=== PATIENT | female | born 1960 | race Caucasian/White ===

== ENCOUNTER 2016-10-23 00:26 | Emergency (ER) | payer OTHER ==
[2016-10-23 00:34] VITALS: BP 141/79; PULSE 74; TEMP 98.2; BMI 32.0
[2016-10-23] MEDS ORDERED: HYDROCORTISONE 1% TOPICAL CREAM 30 GM TUBE TP STA (00:38)
--- NOTE | 2016-10-23 01:14 | PDOC ---
History of Present Illness - General Chief Complaint: Bite Stated Complaint: bite on left lower leg Time Seen by Provider: 10/23/16 00:37 - History of Present Illness Initial Comments: 10/23/16 01:42 presents with blistering on left lower leg. just noticed it c/o itchy no fever/ chills no new meds no viral symptoms no hx of trauma pmh: psychiatric illness fhx: noncontrib ros: reviewed and otherwise negative o/e nad skin--vesicles and blisters on erythematous base, l lower leg. no other rash noted oral pharynx--clear cta rrr nl speech, nl gait a/p contact dermatitis versus allergic reaction to bite topical corticosteroids Past History - Past Medical History Allergies/Adverse Reactions: Allergies Allergy/AdvReac Type Severity Reaction Status Date / Time No Known Allergies Allergy Verified 10/23/16 00:28 Home Medications: Ambulatory Orders NK [No Known Home Medication] 10/23/16 Other medical history: DENIES - Immunization History Immunization Up to Date: Yes - Psycho/Social/Smoking Cessation Hx Anxiety: No Suicidal Ideation: No Smoking Status: No Smoking History: Never smoked Have you smoked in the past 12 months: No Number of Cigarettes Smoked Daily: 0 Information on smoking cessation initiated: No Hx Alcohol Use: No Drug/Substance Use Hx: No Substance Use Type: None *Physical Exam - Vital Signs Last Vital Signs Temp Pulse Resp BP Pulse Ox 98.2 F 74 18 141/79 97 10/23/16 00:30 10/23/16 00:30 10/23/16 00:30 10/23/16 00:30 10/23/16 00:30 *DC/Admit/Observation/Transfer Diagnosis at time of Disposition: Contact dermatitis Qualifiers: Contact dermatitis type: unspecified Contact dermatitis trigger: unspecified trigger Qualified Code(s): L25.9 - Unspecified contact dermatitis, unspecified cause - Discharge Dispostion Disposition: HOME Condition at time of disposition: Stable - Referrals Referrals: Luisa Kirkland [Primary Care Provider] - - Patient Instructions Printed Discharge Instructions: How to Care for an Insect Bite or Sting
== END 2016-10-23 00:45 | disposition home or self-care (01) ==
LOC: FER 00:26
DX: L25.9 Unspecified contact dermatitis, unspecified cause (principal)
CPT/HCPCS: 99281-25

== ENCOUNTER 2016-10-26 19:02 | Emergency (ER) | payer OTHER ==
--- NOTE | 2016-10-26 19:16 | PDOC ---
History of Present Illness - General History Source: Patient, Old Records Exam Limitations: No Limitations - History of Present Illness Initial Comments: 10/26/16 19:36 The patient is a 56 year old female with a past medical history of depression and migraines, who presents to the emergency department with right foot pain for 3 weeks. The patient states that she had bilateral heel spur surgery in May and June of 2015 at [facility] and that her pain is secondary to her post operative treatment. She reports difficulty bearing weight on her right foot secondary to the pain. She did not try to treat the pain at home. She denies any fall or trauma that may have resulted in the pain. PCP: Dr. Luisa Kirkland [phone] <Micha Gallo - Last Filed: 10/26/16 20:53> <Mendy Boateng - Last Filed: 10/27/16 01:44> - General Chief Complaint: Pain Stated Complaint: PAIN Time Seen by Provider: 10/26/16 19:13 Past History <Micha Gallo - Last Filed: 10/26/16 20:53> - Immunization History Immunization Up to Date: Yes - Psycho/Social/Smoking Cessation Hx Anxiety: No Suicidal Ideation: No Smoking Status: No Smoking History: Never smoked Have you smoked in the past 12 months: No Number of Cigarettes Smoked Daily: 0 Information on smoking cessation initiated: No Hx Alcohol Use: No Drug/Substance Use Hx: No Substance Use Type: None <Mendy Boateng - Last Filed: 10/27/16 01:44> - Past Medical History Allergies/Adverse Reactions: Allergies Allergy/AdvReac Type Severity Reaction Status Date / Time ibuprofen [From Motrin] Allergy Intermediate Itching Verified 10/26/16 19:16 Home Medications: Ambulatory Orders Mirtazapine 15 mg PO DAILY 10/26/16 Paroxetine HCl [Paxil] 30 mg PO DAILY 10/26/16 Tramadol HCl 50 mg PO BID PRN #10 tablet MDD 2 tabs 10/26/16 Review of Systems - Review of Systems Able to Perform ROS?: Yes Comments:: 10/26/16 19:36 CONSTITUTIONAL: Absent: fever, no chills, no fatigue EYES: Absent: visual changes ENT: Absent: ear pain, no sore throat CARDIOVASCULAR: Absent: chest pain, no palpitations RESPIRATORY: Absent: cough, no SOB GI: Absent: abdominal pain, no nausea, no vomiting, no constipation, no diarrhea GENITOURINARY: Absent: dysuria, no frequency, no hematuria MUSCULOSKELETAL: Present: Right foot pain Absent: back pain, neck pain SKIN: Absent: rash NEURO: Absent: headache <CleoMicha - Last Filed: 10/26/16 20:53> *Physical Exam - Vital Signs Last Vital Signs Temp Pulse Resp BP Pulse Ox 98.6 F 71 16 146/78 98 10/26/16 19:03 10/26/16 19:03 10/26/16 19:03 10/26/16 19:03 10/26/16 19:03 - Physical Exam Comments: 10/26/16 19:36 GENERAL: The patient is awake, alert, and fully oriented, in no acute distress. HEAD: Normal with no signs of trauma. EYES: Pupils equal, round and reactive to light, extraocular movements intact, sclera anicteric, conjunctiva clear with no pallor. ENT: Ears normal, nares patent, oropharynx clear without exudates. Moist mucous membranes. NECK: Normal range of motion, supple without lymphadenopathy, JVD, or masses. LUNGS: Breath sounds equal, clear to auscultation bilaterally. No wheeze/ crackles. HEART: Regular rate and rhythm, normal S1 and S2 without murmur or rub. ABDOMEN: Soft/nontender/nondistended. BS wnl. No guarding or rebound. No palpable masses. No hepatosplenomegaly. EXTREMITIES: (+) Normal range of motion, no edema. RLE marked tenderness mid posterior plantar surface with minimal edema no erythema or ecchymosis or deformity no evidence of ulcer or skin break no achilles tendon tenderness or step off. Distal foot was warm and dry with excellent capillary refill. NEUROLOGICAL: Cranial nerves II through XII grossly intact. Normal speech, normal gait. PSYCH: Normal mood, normal affect. SKIN: Warm, Dry, normal turgor, no rashes or lesions noted. <CleoMicha - Last Filed: 10/26/16 20:53> - Vital Signs Last Vital Signs Temp Pulse Resp BP Pulse Ox 98.6 F 71 16 146/78 98 10/26/16 19:03 10/26/16 19:03 10/26/16 19:03 10/26/16 19:03 10/26/16 19:03 <Mendy Boateng - Last Filed: 10/27/16 01:44> ED Treatment Course - RADIOLOGY Radiograph Interpretation: 10/26/16 20:20 EXAM#: TYPE/EXAM: RESULT: [id number] RAD/OSCALCIS/HEEL-RIGHT HISTORY PROVIDED: Heel pain. AP and lateral projections of the right calcaneus reveals no evidence of fracture or acute bony abnormalities. There is a small spur along the plantar surface. IMPRESSION: Small calcaneal spur Reported By: Gustavo Rueda MD 10/26/162008 <Micha Gallo - Last Filed: 10/26/16 20:53> Medical Decision Making - Medical Decision Making Documentation has been prepared under my direction and personally reviewed by me in its entirety. I attest that this documented accurately reflects all work, treatment, procedures and medical decision making performed by me. As noted above, this 56-year-old woman who has had bilateral removal of heel spurs last year, presents with a few week history of recurrent right heel pain. No history of trauma/overuse noted. On exam, she had marked tenderness of the posterior plantar surface over the calcaneal region. Os calcis x-ray performed to evaluate for new trauma or other acute abnormalities. As noted above, small heel spur noted on x-ray but no other abnormality. Results discussed with the patient. Since the patient has apparent ALLERGY to ibuprofen (had facial swelling after ibuprofen ingestion last year), nonsteroidal anti-inflammatory medications will be avoided. Small (#10) prescription for tramadol 50 mg will be prescribed to be used as needed for severe pain. Patient has been cautioned that she may feel drowsy after this medication and to avoid driving or other activities requiring her full attention . 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 <Mendy Boateng - Last Filed: 10/27/16 01:44> *DC/Admit/Observation/Transfer - Attestations Scribe Attestion: 10/26/16 19:36 Documentation prepared by Micha Gallo, acting as medical assistant secretary for Mendy Boateng MD. <Micha Gallo - Last Filed: 10/26/16 20:53> <Mendy Boateng - Last Filed: 10/27/16 01:44> Diagnosis at time of Disposition: Pain of right heel - Discharge Dispostion Disposition: HOME Condition at time of disposition: Stable - Prescriptions Prescriptions: Tramadol HCl 50 mg PO BID PRN #10 tablet MDD 2 tabs PRN Reason: Severe Pain - Referrals Referrals: Luisa Kirkland [Primary Care Provider] - - Patient Instructions Printed Discharge Instructions: Heels That Hurt Additional Instructions: continue tylenol as needed for mild pain tramadol 50mg up to twice a day for more severe pain followup with your printing agent next week as scheduled return to ER if you have more severe pain
[2016-10-26 19:17] VITALS: BP 146/78; PULSE 71; TEMP 98.6; BMI 32.0
== END 2016-10-26 20:33 | disposition home or self-care (01) ==
LOC: FER 19:02
DX: M79.671 Pain in right foot (principal); Z98.890 Other specified postprocedural states; F32.9 Major depressive disorder, single episode, unspecified
CPT/HCPCS: 73650-TC-RT; 99281-25

== ENCOUNTER 2018-01-26 10:35 | Emergency (ER) | payer OTHER ==
[2018-01-26 11:16] VITALS: BP 141/83; PULSE 64; TEMP 98.3; BMI 30.1
--- NOTE | 2018-01-26 11:59 | PDOC ---
History of Present Illness - General Chief Complaint: Sore Throat Stated Complaint: FOREIGN BODY Time Seen by Provider: 01/26/18 11:39 History Source: Patient Exam Limitations: No Limitations (sorethroat X 2 months) Past History - Travel Traveled outside of the country in the last 30 days: No Close contact w/someone who was outside of country & ill: No - Past Medical History Allergies/Adverse Reactions: Allergies Allergy/AdvReac Type Severity Reaction Status Date / Time ibuprofen [From Motrin] Allergy Intermediate Itching Verified 01/26/18 11:12 Home Medications: Ambulatory Orders Mirtazapine 15 mg PO DAILY 10/26/16 Paroxetine HCl [Paxil] 30 mg PO DAILY 10/26/16 Tramadol HCl 50 mg PO BID PRN #10 tablet MDD 2 tabs 10/26/16 Chlorhexidine Gluconate [Peridex -] 15 ml MM ONCE 7 Days #90 ml 01/26/18 Asthma: Yes COPD: No - Immunization History Immunization Up to Date: Yes - Suicide/Smoking/Psychosocial Hx Smoking Status: No Smoking History: Never smoked Have you smoked in the past 12 months: No Number of Cigarettes Smoked Daily: 0 Hx Alcohol Use: No Drug/Substance Use Hx: No Substance Use Type: None Review of Systems - Review of Systems Is the patient limited Thai proficient: No Constitutional: No: Chills, Fever HEENTM: Yes: Throat Pain. No: Double Vision, Ocular Prothesis, Ear Discharge, Nose Pain, Nose Congestion, Nose Bleeding, Hearing Loss, Throat Swelling, Dental Problems, Difficulty Swallowing, Mouth Swelling Respiratory: No: Shortness of Breath, Wheezing, Productive cough Cardiac (ROS): No: Chest Pain, Irregular Heart Rate : No: Burning, Dysuria, Discharge, Frequency, Flank Pain, Hematuria, Incontinence, Pain Neurological: No: Headache, Numbness Endocrine: No: Excessive Sweating *Physical Exam - Vital Signs Last Vital Signs Temp Pulse Resp BP Pulse Ox 98.3 F 64 18 141/83 99 01/26/18 11:13 01/26/18 11:13 01/26/18 11:13 01/26/18 11:13 01/26/18 11:13 - Physical Exam General Appearance: Yes: Nourished HEENT: positive: EOMI, SHERRILL, Tonsillar Erythema. 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 Pt dneies any sx, neck swelling, f/c, cough. 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
== END 2018-01-26 13:07 | disposition home or self-care (01) ==
LOC: JERFT 10:35 → JER 10:35 → JERFT 13:07
DX: J02.9 Acute pharyngitis, unspecified (principal); Z77.21 Contact with and (suspected) exposure to potentially hazardous body fluids
CPT/HCPCS: 36415; 87070; 87430; 87491; 87591; 99281-25

== ENCOUNTER 2018-08-20 17:48 | Emergency (ER) | payer OTHER ==
[2018-08-20 17:53] VITALS: BP 141/62; PULSE 69; TEMP 97; BMI 30.2
--- NOTE | 2018-08-20 17:55 | PDOC ---
Rapid Medical Evaluation Chief Complaint: Pain Time Seen by Provider: 08/20/18 17:50 Medical Evaluation: Allergies Allergy/AdvReac Type Severity Reaction Status Date / Time ibuprofen [From Motrin] Allergy Intermediate Itching Verified 01/26/18 11:12 08/20/18 17:50 c/o LUQ abdominal pain x 2 weeks and pain radiating to left side of chest. . history of GERD, mitral valve prolapse. currently on zantac Pe: Patient alert ox3. A; abdominal pain P: EKG cbc cmp troponin patient to the ER for further management of care. Discharge Disposition - Diagnosis Abdominal pain Qualifiers: Abdominal location: left upper quadrant Qualified Code(s): R10.12 - Left upper quadrant pain Chest pain Qualifiers: Chest pain type: unspecified Qualified Code(s): R07.9 - Chest pain, unspecified - Referrals - Patient Instructions - Post Discharge Activity
[2018-08-20 18:34] LABS: BASO % 0.6 % (0-2.0); EOS % 1.7 % (0-4.5); HEMATOCRIT 38.9 % (32.4-45.2); HEMOGLOBIN 13.2 GM/dL (10.7-15.3); LYMPH % 35.9 % (8-40); MCH 29.6 pg (25.7-33.7); MCHC 33.9 g/dl (32.0-36.0); MEAN CELL VOLUME 87.4 fl (80-96); MEAN PLT VOLUME 9.4 fl (7.5-11.1); MONO % 8.1 % (3.8-10.2); NEUT % 53.7 % (42.8-82.8); PLATELET COUNT 294 K/MM3 (134-434); RBC 4.45 M/mm3 (3.60-5.2); RDW 13.1 % (11.6-15.6); WHITE BLOOD COUNT 10.2 K/mm3 (4.0-10.0)
[2018-08-20 19:05] LABS: ALBUMIN 3.8 g/dl (3.4-5.0); ALK PHOS 85 U/L (45-117); ANION GAP 3 MMOL/L (8-16); BILIRUBIN,TOTAL 0.2 mg/dL (0.2-1); BLOOD UREA NITROGEN 14 mg/dL (7-18); CALCIUM 9.5 mg/dL (8.5-10.1); CHLORIDE 107 mmol/L (98-107); CO2 28 mmol/L (21-32); CREATININE 0.7 mg/dL (0.55-1.3); GLUCOSE,RANDOM 91 mg/dL (74-106); POTASSIUM 3.9 mmol/L (3.5-5.1); SGOT/AST 17 U/L (15-37); SGPT/ALT 22 U/L (13-61); SODIUM 138 mmol/L (136-145); TOT PROT 7.4 g/dl (6.4-8.2)
--- NOTE | 2018-08-20 20:05 | PDOC ---
History of Present Illness - General History Source: Patient Exam Limitations: No Limitations <Halle Randhawa - Last Filed: 08/20/18 20:35> <Saige Khan - Last Filed: 08/20/18 21:42> - General Chief Complaint: Pain, Acute Stated Complaint: ABD PAIN Time Seen by Provider: 08/20/18 17:50 Past History - Past Medical History Asthma: Yes COPD: No - Immunization History Immunization Up to Date: Yes - Suicide/Smoking/Psychosocial Hx Smoking Status: No Smoking History: Never smoked Have you smoked in the past 12 months: No Number of Cigarettes Smoked Daily: 0 Hx Alcohol Use: No Drug/Substance Use Hx: No Substance Use Type: None <Halle Randhawa - Last Filed: 08/20/18 20:35> <Saige Khan - Last Filed: 08/20/18 21:42> - Past Medical History Allergies/Adverse Reactions: Allergies Allergy/AdvReac Type Severity Reaction Status Date / Time ibuprofen [From Motrin] Allergy Intermediate Itching Verified 08/20/18 17:50 Home Medications: Ambulatory Orders Mirtazapine 15 mg PO DAILY 10/26/16 Paroxetine HCl [Paxil] 30 mg PO DAILY 10/26/16 Tramadol HCl 50 mg PO BID PRN #10 tablet MDD 2 tabs 10/26/16 Acetaminophen [Tylenol -] 500 mg PO Q6H 08/20/18 Ranitidine HCl 150 mg PO BID 08/20/18 *Physical Exam - Vital Signs Last Vital Signs Temp Pulse Resp BP Pulse Ox 97.0 F L 69 18 141/62 96 08/20/18 17:50 08/20/18 17:50 08/20/18 17:50 08/20/18 17:50 08/20/18 17:50 - Physical Exam General Appearance: No: Apparent Distress Respiratory/Chest: positive: Lungs Clear, Normal Breath Sounds. negative: Respiratory Distress Cardiovascular: positive: Regular Rhythm, Regular Rate, S1, S2. negative: Murmur Gastrointestinal/Abdominal: positive: Tender (in epigastric region), Soft, Other (no RUQ tenderness, neg Sanon's sign). negative: Distended, Guarding, Rebound, Hernia, Mass Musculoskeletal: negative: CVA Tenderness Integumentary: positive: Normal Color Neurologic: positive: Alert, Normal Mood/Affect <Halle Randhawa - Last Filed: 08/20/18 20:35> - Vital Signs Last Vital Signs Temp Pulse Resp BP Pulse Ox 97.0 F L 69 18 141/62 96 08/20/18 17:50 08/20/18 17:50 08/20/18 17:50 08/20/18 17:50 08/20/18 17:50 <Saige Khan - Last Filed: 08/20/18 21:42> ED Treatment Course - LABORATORY CBC & Chemistry Diagram: 08/20/18 18:01 08/20/18 18:01 - ADDITIONAL ORDERS Additional order review: Laboratory Results 08/20/18 18:01 Sodium 138 Potassium 3.9 Chloride 107 Carbon Dioxide 28 Anion Gap 3 L BUN 14 Creatinine 0.7 Creat Clearance w eGFR 86.25 Random Glucose 91 Calcium 9.5 Magnesium 2.0 Total Bilirubin 0.2 AST 17 ALT 22 Alkaline Phosphatase 85 Troponin I < 0.02 Total Protein 7.4 Albumin 3.8 08/20/18 18:01 RBC 4.45 MCV 87.4 MCHC 33.9 RDW 13.1 MPV 9.4 Neutrophils % 53.7 D Lymphocytes % 35.9 D Monocytes % 8.1 Eosinophils % 1.7 Basophils % 0.6 <Halle Randhawa - Last Filed: 08/20/18 20:35> - LABORATORY CBC & Chemistry Diagram: 08/20/18 18:01 08/20/18 18:01 - ADDITIONAL ORDERS Additional order review: Laboratory Results 08/20/18 18:01 Sodium 138 Potassium 3.9 Chloride 107 Carbon Dioxide 28 Anion Gap 3 L BUN 14 Creatinine 0.7 Creat Clearance w eGFR 86.25 Random Glucose 91 Calcium 9.5 Magnesium 2.0 Total Bilirubin 0.2 AST 17 ALT 22 Alkaline Phosphatase 85 Troponin I < 0.02 Total Protein 7.4 Albumin 3.8 Lipase 171 08/20/18 18:01 RBC 4.45 MCV 87.4 MCHC 33.9 RDW 13.1 MPV 9.4 Neutrophils % 53.7 D Lymphocytes % 35.9 D Monocytes % 8.1 Eosinophils % 1.7 Basophils % 0.6 - Medications Given in the ED: ED Medications Discontinued Medications Generic Name Dose Route Start Last Admin Trade Name Freq PRN Reason Stop Dose Admin Al Hydroxide/Mg Hydroxide 30 ml 08/20/18 20:33 04/16/19 20:46 Mylanta Oral Suspension - PO 08/20/18 20:34 30 ml ONCE ONE Administration Lidocaine HCl 20 ml 08/20/18 20:33 08/20/18 20:46 Xylocaine 2% Viscous Oral - MM 08/20/18 20:34 20 ml ONCE ONE Administration <Saige Khan - Last Filed: 08/20/18 21:42> Medical Decision Making - Medical Decision Making 57 y/o F with hx of depression, asthma presents with nonradiating sharp epigastric pain x 1 year, gradually getting over, particularly since Jun 2018. Saw her PCP for it last week and was prescribed Zantac. Is also taking Tums, but neither medication has helped with pain. Has not seen GI doctor yet. Pain is not exacerbated by anything in particular and has not noted any association of food with pain. Mentions the past few days, the pain has been moving more to LUQ. Denies fever, cough, sob, cp, n/v/d, urinary complaints. Denies prior abd surgeries. Denies smoking or drug use EKG: NSR at 66 bpm, no ST-T changes Not suspicious for ACS given chronicity of sxs; consider gastritis, pancreatitis ; not suspicious for cholecystitis, cholelithiasis Plan: Labs 08/20/18 20:02 Labs unremarkable Will refer to GI Stable for dc 08/20/18 20:35 <Halle Randhawa - Last Filed: 08/20/18 20:35> *DC/Admit/Observation/Transfer - Discharge Dispostion Decision to Admit order: No <Halle Randhawa - Last Filed: 08/20/18 20:35> - Attestations Physician Attestion: I reviewed the case with the mid-level practitioner and agree with the mid- level practitioner's assessment, diagnosis and disposition. <Saige Khan - Last Filed: 08/20/18 21:42> Diagnosis at time of Disposition: Epigastric pain - Discharge Dispostion Disposition: HOME Condition at time of disposition: Stable - Referrals Referrals: Luisa Kirkland [Primary Care Provider] - 2 Days Mika Philip MD [Staff Physician] - 2 Days - Patient Instructions Printed Discharge Instructions: DI for Epigastric Pain Additional Instructions: Thank you for choosing [facility]. It was a pleasure taking care of you. Your blood work was normal You were referred to GI, Dr. Philip, for further evaluation of your symptoms Return to the Emergency Department if your symptoms worsen or persist or have other concerning symptoms. - Post Discharge Activity
[2018-08-20 20:27] LABS: LIPASE 171 U/L (73-393)
[2018-08-20] MEDS ORDERED: LIDOCAINE VISCOUS 2% ORAL/TOP 20 ML UNIT-DOSE CUP MM ONE (20:33)
[2018-08-20] MEDS ORDERED: MAG HYDROX/AL HYDROX/SIMETH 30 ML UNIT-DOSE CUP PO ONE (20:33)
[2018-08-20] MEDS ORDERED: LIDOCAINE VISCOUS 2% ORAL/TOP 20 ML UNIT-DOSE CUP ONE (20:42)
[2018-08-20] MEDS ORDERED: MAG HYDROX/AL HYDROX/SIMETH 30 ML UNIT-DOSE CUP ONE (20:42)
--- NOTE | 2018-08-21 10:34 | EKG ---
Test Reason : Blood Pressure : / mmHG Vent. Rate : 066 BPM Atrial Rate : 066 BPM P-R Int : 136 ms QRS Dur : 076 ms QT Int : 396 ms P-R-T Axes : 018 028 055 degrees QTc Int : 415 ms NORMAL SINUS RHYTHM NORMAL ECG WHEN COMPARED WITH ECG OF 15-MAR-2014 04:45, NO SIGNIFICANT CHANGE WAS FOUND Confirmed by FELICIA DELGADO MD ([id number]) on 08/21/2018 10:34:08 AM Referred By: Confirmed By:FELICIA DELGADO MD
== END 2018-08-20 20:48 | disposition home or self-care (01) ==
LOC: JER 17:48
DX: R10.13 Epigastric pain (principal); F32.9 Major depressive disorder, single episode, unspecified; Z87.09 Personal history of other diseases of the respiratory system
CPT/HCPCS: 36415; 80053; 83690; 83735; 84484; 85025; 93005; 93010; 99283-25

== ENCOUNTER 2021-06-08 11:42 | Emergency (ER) | payer OTHER ==
[2021-06-08 11:50] VITALS: TEMP 97.7; BMI 27.9
[2021-06-08] MEDS ORDERED: morphine CARPU-JECT 4 MG/1 ML DISP.SYRIN IVPUSH ONE (13:25)
[2021-06-08] MEDS ORDERED: SODIUM CHLORIDE 0.9% 500 ML INFUS.BAG IV ONE (13:25)
[2021-06-08] MEDS ORDERED: ONDANSETRON 4 MG/2 ML VIAL IVPUSH ONE (13:44)
[2021-06-08] MEDS ORDERED: FAMOTIDINE 20 MG/50 ML IVPB 20 MG/50 ML MG IVPB ONE ×2 (13:47→14:14)
[2021-06-08 14:10] LABS: EPI CELLS 29 /uL (0-25.1); HYALINE CASTS 5 /uL (0-3.1); URINE APPEARANCE CLEAR; URINE BACTERIA 65 /uL (0-1359); URINE BILIRUBIN NEGATIVE (NEGATIVE); URINE COLOR YELLOW; URINE GLUCOSE (UA) NEGATIVE (NEGATIVE); URINE KETONE TRACE (NEGATIVE); URINE LEUK ESTERASE TRACE (NEGATIVE); URINE NITRITE NEGATIVE (NEGATIVE); URINE PROTEIN 1+ (NEGATIVE); URINE RBC 20 /uL (0-23.9); URINE WBC 33 /uL (0-25.8)
[2021-06-08] MEDS ORDERED: ONDANSETRON 4 MG/2 ML VIAL ONE (14:13)
[2021-06-08 14:24] LABS: URINE CRYSTALS MODERATE CALCIUM OXA /hpf
[2021-06-08 14:38] LABS: BASO % 0.2 % (0-2.0); EOS % 0.1 % (0-4.5); HEMATOCRIT 39.1 % (32.4-45.2); HEMOGLOBIN 13.2 GM/dL (10.7-15.3); MCHC 33.7 g/dl (32.0-36.0); MEAN CELL VOLUME 86.1 fl (80-96); MEAN PLT VOLUME 9.5 fl (7.5-11.1); MONO % 6.3 % (3.8-10.2); NEUT % 85.4 % (42.8-82.8); PLATELET COUNT 250 10^3/uL (134-434); RBC 4.54 M/mm3 (3.60-5.2); RDW 13.2 % (11.6-15.6); WHITE BLOOD COUNT 15.5 K/mm3 (4.0-10.0)
[2021-06-08 14:59] LABS: ALBUMIN 3.9 g/dl (3.4-5.0)
[2021-06-08 15:00] LABS: BLOOD UREA NITROGEN 16.1 mg/dL (7-18)
[2021-06-08 15:03] LABS: CREATININE 0.8 mg/dL (0.55-1.3)
[2021-06-08 15:04] LABS: BILIRUBIN,TOTAL 0.3 mg/dL (0.2-1)
[2021-06-08 15:05] LABS: TOT PROT 7.3 g/dl (6.4-8.2)
[2021-06-08] MEDS ORDERED: ACETAMINOPHEN 325 MG TABLET (FP) PO ONE (17:07)
[2021-06-08] MEDS ORDERED: ACETAMINOPHEN 1000 MG/100 ML BAG IVPB ONE (17:07)
[2021-06-08] MEDS ORDERED: ACETAMINOPHEN 325 MG TABLET (FP) ONE (17:21)
[2021-06-08 18:28] VITALS: BP 148/60; PULSE 84
== END 2021-06-08 18:28 | disposition home or self-care (01) ==
LOC: JER 11:42
PROC: 3E033GC Introduction of Other Therapeutic Substance into Peripheral Vein, Percutaneous Approach (ICD-10-PCS; principal; 2021-06-08)
PROC: 3E033GC Introduction of Other Therapeutic Substance into Peripheral Vein, Percutaneous Approach (ICD-10-PCS; 2021-06-08)
DX: N20.0 Calculus of kidney (principal)
CPT/HCPCS: 36415; 71045-TC-FY; 74177-TC; 80053; 81003; 82550; 83690; 84484; 85025; 87077; 87086; 87804; 93005; 93010; 99285-25; C9803-CS; Q9967; U0003; U0005

== ENCOUNTER 2021-06-27 10:12 | Emergency (ER) | payer OTHER ==
[2021-06-27 10:27] VITALS: BP 151/81; PULSE 63; TEMP 97.3; BMI 27.9
[2021-06-27 12:38] LABS: HIV INTERPRETATION NEGATIVE (NEGATIVE)
== END 2021-06-27 11:23 | disposition home or self-care (01) ==
LOC: JERFT 10:12
DX: Z11.3 Encounter for screening for infections with a predominantly sexual mode of transmission (principal)
CPT/HCPCS: 36415; 86704; 86780; 86803; 87340; 87389; 87491; 87517; 87591; 99283-25

== ENCOUNTER 2022-06-07 12:09 | Emergency (ER) | payer OTHER ==
[2022-06-07 12:18] VITALS: BP 151/76; PULSE 80; RESP 18; TEMP 98.1; BMI 27.3
[2022-06-07] MEDS ORDERED: ACETAMINOPHEN 500 MG TABLET (FP) PO ONE (13:46)
[2022-06-07] MEDS ORDERED: ACETAMINOPHEN 500 MG TABLET (FP) ONE (13:47)
== END 2022-06-07 13:56 | disposition home or self-care (01) ==
LOC: JERFT 12:09
DX: S49.91XA Unspecified injury of right shoulder and upper arm, initial encounter (principal); W01.0XXA Fall on same level from slipping, tripping and stumbling without subsequent striking against object, initial encounter
CPT/HCPCS: 73030-TC-RT-FY; 99283-25

== ENCOUNTER 2022-10-21 13:06 | Emergency (ER) | payer OTHER ==
[2022-10-21 13:18] VITALS: BP 145/75; PULSE 67; RESP 18; TEMP 98.5
[2022-10-21 14:59] LABS: URINE APPEARANCE CLEAR; URINE BILIRUBIN NEGATIVE (NEGATIVE); URINE COLOR YELLOW; URINE GLUCOSE (UA) NEGATIVE (NEGATIVE); URINE KETONE NEGATIVE (NEGATIVE); URINE LEUK ESTERASE NEGATIVE (NEGATIVE); URINE NITRITE NEGATIVE (NEGATIVE); URINE PROTEIN NEGATIVE (NEGATIVE); URINE UROBILINOGEN 0.2 mg/dL (0.2-1.0)
[2022-10-21 15:50] LABS: SYPHILIS W/ RPR CONF NON-REACTIVE (NONREACTIVE)
[2022-10-21 16:19] LABS: HIV INTERPRETATION NEGATIVE (NEGATIVE)
== END 2022-10-21 17:04 | disposition home or self-care (01) ==
LOC: JERFT 13:06
DX: L29.2 Pruritus vulvae (principal); A64 Unspecified sexually transmitted disease
CPT/HCPCS: 36415; 81003; 86780; 87086; 87389; 87491; 87591; 99283-25